=== PATIENT | female | born 1975 | race African-American/Black ===

== ENCOUNTER 2016-05-02 18:04 | Emergency (ER) | payer BC ==
[~2016-05-02] VITALS: Ht 165.1 cm; Wt 95.7 kg
[2016-05-02] MEDS ORDERED: ONDANSETRON 4 MG TAB.RAPDIS PO ONE (18:30)
[2016-05-02] MEDS ORDERED: MORPHINE SULFATE INJ 2 MG/ML DISP.SYRIN IM ONE (18:30)
[2016-05-02] MEDS ORDERED: MORPHINE SULFATE INJ 4 MG/ML DISP.SYRIN ONE (18:34)
[2016-05-02] MEDS ORDERED: ONDANSETRON 4 MG TAB.RAPDIS ONE (18:34)
[2016-05-02 20:11] VITALS: BP 128/81
== END 2016-05-02 20:12 | disposition home or self-care (01) ==
LOC: ER 18:06
DX: M62.838 Other muscle spasm (principal); G93.5 Compression of brain; Z98.890 Other specified postprocedural states; Z88.2 Allergy status to sulfonamides; Z88.6 Allergy status to analgesic agent; Z88.1 Allergy status to other antibiotic agents; Z88.8 Allergy status to other drugs, medicaments and biological substances
CPT/HCPCS: 70450; 72125; 96372; 99284; A4606; J2270; Q0162; Z7610